=== PATIENT | female | born 1960 | race Caucasian/White ===

== ENCOUNTER → 2018-08-17 | Day surgery (SDC) | payer OTHER ==
[~2018-08-17] VITALS: Ht 165.1 cm; Wt 91.6 kg
[~2018-08-17] MED LIST: BREO ELLIPTA 21 EACH INH; FOSAMAX70 M1 PO; LASIX20 MG PO; LEVOTHYROXINE0.05 MG PO; MULTIPLE VITAMI1 CAP PO; OMEPRAZOLE MAGN20 MG PO; OXYGEN NAS; PERCOCET 325 MG1 TA5 PO; SPIRIVA18 MCG PO; SYMBICORT1 AE1 INH; VALIUM5 MG PO; ZOLOFT50 MG PO
--- NOTE | ~2018-08-17 | PROC NOTE ---
[place], [place] PROCEDURE NOTE NAME: FELICIA HUTCHINS UNIT #: [id number] ROOM: DOCTOR: CARLTON GONZALEZ MD,DEVONTE BIRTHDATE: 56 DOS: 08/17/2018 BRONCHOSCOPY PREOPERATIVE DIAGNOSIS: Severe nonproductive cough for several weeks. The patient is not responding to treatment. POSTOPERATIVE DIAGNOSES: Evidence of tracheobronchitis as well as mucus impaction of the endobronchial tree bilaterally, significant increased secretion, mucus impaction of the lower endobronchial tree, then the rest of the endobronchial tree. PROCEDURE DESCRIPTION: Informed consent obtained. The patient brought to the OR and placed in supine position. Conscious sedation administered by the Anesthesia Department. After achieving proper sedation, airway introduced in the mouth. Bronchoscope advanced to the airway into laryngeal area. Epiglottis and vocal cord seen. Vocal were moving symmetrically with movements. Bronchoscope advanced to vocal and tracheal lumen. Tracheal lumen was noted with small amount of mucus secretion and suctioned out. The right upper, right middle, right lower, left upper, lingular lower bronchi were all examined. Moderate amount of mucus plugs were noted mainly in the lower lobe bronchial subsegments, small scattered amount of secretion and mucus plug remaining in the endobronchial tree. There were no endobronchial obstructive lesions. Procedure well tolerated by the patient without difficulty. Postoperative findings were discussed. The patient's family member in recovery room. DEVONTE VINCENT MD CM:PROCNOTE:PROCEDURE NOTE [id number] DEVONTE GONZALEZ MD
[2018-08-17 07:45] VITALS: BP 120/96
[2018-08-17 08:55] VITALS: BP 102/68
[2018-08-17 09:10] VITALS: BP 130/76
[2018-08-17 09:25] VITALS: BP 125/75
[2018-08-18 15:07] LABS: ACID FAST SPEC PROCESSING Concentration (.)
== END | disposition home or self-care (01) ==
LOC: SDC 08-12 10:15
PROVIDERS: Internal Medicine Critical Care Medicine
DX: J40 Bronchitis, not specified as acute or chronic (principal); J98.09 Other diseases of bronchus, not elsewhere classified; J43.2 Centrilobular emphysema; E03.9 Hypothyroidism, unspecified; F41.9 Anxiety disorder, unspecified; K21.9 Gastro-esophageal reflux disease without esophagitis; F32.9 Major depressive disorder, single episode, unspecified; E66.01 Morbid (severe) obesity due to excess calories; Z68.33 Body mass index [BMI] 33.0-33.9, adult; Z88.5 Allergy status to narcotic agent; Z98.890 Other specified postprocedural states; Z87.891 Personal history of nicotine dependence; Z79.899 Other long term (current) drug therapy; Z90.710 Acquired absence of both cervix and uterus; Z88.1 Allergy status to other antibiotic agents; Z88.8 Allergy status to other drugs, medicaments and biological substances

== ENCOUNTER 2020-03-30 17:19 | Inpatient (IN) | payer OTHER ==
[~2020-03-30] VITALS: Ht 165.1 cm; Wt 86.0 kg
[2020-03-30 17:35] VITALS: BP 115/72
[2020-03-30 18:15] LABS: BASO % 0.1 % (0.0-1.0); EOS # 0.2 10*3/uL (0.0-0.4); EOS % 1.1 % (1.0-4.0); LYMPH # 2.9 10*3/uL (1.3-4.4); LYMPH % 21.6 % (27.0-41.0); MEAN CELL VOLUME 96.6 fl (81.0-99.0); MEAN PLATELET VOLUME 10.6 fl (9.6-12.3); MONO # 0.7 10*3/uL (0.1-1.0); MONO % 5.2 % (3.0-9.0); NEUT # 9.6 10*3/uL (2.3-7.9); NEUT % 71.7 % (47.0-73.0); PLATELET COUNT AUTOMATED 274 10*3/uL (130-400); RED BLOOD COUNT 4.35 10*6/uL (4.10-5.10); RED CELL DISTRI WIDTH 15.3 % (0-14.5); WHITE BLOOD COUNT 13.4 10*3/uL (4.8-10.8)
[2020-03-30 18:21] LABS: ABG BASE EXCESS 6.9 mmol/L (-2.0-2.0); ARTERIAL BLOOD GAS PH 7.368 (7.35-7.45)
[2020-03-30 18:25] LABS: ACT PARTIAL THROMBO TIME 26.9 SECONDS (20.0-32.1)
[2020-03-30 18:30] LABS: ALKALINE PHOSPHATASE 100 U/L (45-117); BUN 13 mg/dl (7-24); CHLORIDE 99 mmol/L (98-107); SGOT/AST 11 IU/L (3-35); SGPT/ALT 28 U/L (12-78); SODIUM 135 mmol/L (136-145); TOTAL PROTEIN 7.5 gm/dL (6.4-8.2)
[2020-03-30 18:34] LABS: TROPONIN I < 0.015 ng/ml (<0.045)
--- NOTE | 2020-03-30 19:00 | NUR ---
ASSUMED PT CARE, NURSE TO NURSE REPORT HANDOFF FROM CHRISTIN SAAVEDRA
[2020-03-30 19:26] VITALS: BP 118/80
--- NOTE | 2020-03-30 19:30 | NUR ---
CALLED 5TH FLOOR FOR PT TRANSPORT TO [facility]
--- NOTE | 2020-03-30 19:32 | NUR ---
IN WITH PT WILL TRANSPORT AFTER DR RIGGS
--- NOTE | 2020-03-30 19:36 | NUR ---
FAXED SBAR TO 5TH FLOOR
[2020-03-30 20:00] VITALS: BP 129/75
--- NOTE | 2020-03-30 20:00 | NUR ---
A 59, admitted to 5E, under the services of FADIA Reed DO with a diagnosis of COPD EXACERBATION. Chief complaint is SOB. Patient arrived via wheel chair from ER. Monitor applied. Initial assessment completed. Vital signs taken and recorded. FADIA REED DO notified of admission to the unit. Orders received. See assessment for past medical history, medications and allergies. Patient and/or family oriented to unit. [address] visitation policy reviewed. Clothing/patient valuable form completed. ELIZA SANDOVAL
--- NOTE | 2020-03-30 21:58 | NUR ---
PT MEDICATED WITH PRN ZOFRAN FOR C/O NAUSEA. WILL MONITOR FOR EFFECTIVENESS.
--- NOTE | 2020-03-30 22:45 | NUR ---
PT REPORTS RELIEF OF NAUSEA. PRN ZOFRAN EFFECTIVE.
[2020-03-31] VITALS (8 sets, daily range): BP systolic 99–112; BP diastolic 52–80
[2020-03-31 06:34] LABS: HEMATOCRIT 42.2 % (37.0-47.0); LYMPH # 1.2 10*3/uL (1.3-4.4); LYMPH % 16.4 % (27.0-41.0); MEAN CORPUSCULAR HGB 28.7 pg (27.0-31.0); MEAN CORPUSCULAR HGB CONC 29.6 g/dl (33.0-37.0); MEAN PLATELET VOLUME 10.7 fl (9.6-12.3); MONO # 0.1 10*3/uL (0.1-1.0); MONO % 0.7 % (3.0-9.0); NEUT % 82.6 % (47.0-73.0); PLATELET COUNT AUTOMATED 266 10*3/uL (130-400); RED BLOOD COUNT 4.35 10*6/uL (4.10-5.10); RED CELL DISTRI WIDTH 14.9 % (0-14.5); WHITE BLOOD COUNT 7.2 10*3/uL (4.8-10.8)
[2020-03-31 06:48] LABS: CLARITY CLEAR (CLEAR); COLOR YELLOW (YELLOW); GLUCOSE NEGATIVE (NEGATIVE)
[2020-03-31 06:49] LABS: BILIRUBIN NEGATIVE (NEGATIVE); BLOOD 1+ (NEGATIVE); KETONE NEGATIVE (NEGATIVE); PH 6.5 (5.0-9.0)
[2020-03-31 06:50] LABS: LEUKO ESTERASE NEGATIVE (NEGATIVE); MUCOUS TRACE; NITRITE NEGATIVE (NEGATIVE); UROBILINOGEN 0.2 E.U./dl (0.2-1.0); WBC 0-2 wbc/hpf (0-5)
--- NOTE | 2020-03-31 07:00 | NUR ---
ARRIVED ON SHIFT, REPORT RECEIVED FROM OFF GOING NURSE, ASSUMED CARE OF PATIENT.
[2020-03-31 07:01] LABS: ALBUMIN 2.8 gm/dl (3.1-4.5); BUN 15 mg/dl (7-24); CHLORIDE 99 mmol/L (98-107); CHOLESTEROL 140 mg/dL (<200); CREATININE 0.51 mg/dL (0.55-1.02); POTASSIUM 4.7 mmol/L (3.5-5.1); SGOT/AST 10 IU/L (3-35); SGPT/ALT 25 U/L (12-78); SODIUM 135 mmol/L (136-145)
[2020-03-31 07:08] LABS: ALKALINE PHOSPHATASE 99 U/L (45-117); FREE T4 1.53 ng/dl (0.76-1.46); HDL CHOLESTEROL 50 mg/dl (40-60); LDL CHOLESTEROL 78 mg/dL (9-159); THYROID STIM HORMONE (HS) 0.142 uIU/ml (0.358-4.75); TOTAL PROTEIN 7.6 gm/dL (6.4-8.2); TRIGLYCERIDES 60 mg/dl (<150); VLDL CHOLESTEROL 12 mg/dL (6-40)
--- NOTE | 2020-03-31 07:22 | NUR ---
INTRODUCED SELF TO PATIENT BED IN LOW POSITION, WHEEL LOCKS ENGAGED, SIDERAILS UP X 2 FOR TURNING AND REPOSITIONING, CALL LIGHT WITHIN REACH NO NEEDS VOICED AT THIS TIME
--- NOTE | 2020-03-31 07:23 | NUR ---
Shift chart check completed.
[2020-03-31 11:00] LABS: VITAMIN D, 25-HYDROXY 19.8 ng/mL (30-100)
--- NOTE | 2020-03-31 12:46 | NUR ---
Manager Clinical [employer] in to talk to patient. Patient states lives at HOME with BOYFRIEND AND HER SON. There are 15 steps in the home. Physician: IZAIAH GUTIERREZ Pharmacy: [facility] Home health services: NONE Patient's level of ADLs: INDEPENDENT Patient has working utilities: YES DME: OXYGEN THROUGH [employer], [employer]UL[employer] Follow-up physician's appointment after d/c: WILL BE MADE BY HOSPITALIST NURSE DIRECTOR ON DISCHARGE Does patient want to access PORTAL?: NO Discharge plan PT LIVES AT HOME WITH HER BOYFRIEND AND HER SON AND IS INDEPENDENT IN HER CARE. STATES SHE HAS HOME OXYGEN AND NEBULIZER AT HOME. DENIES ANY OTHER NEEDS. ASKED HER ABOUT HOME HEALTH BUT SHE DECLINES. PLAN IS TO RETURN HOME WHEN MEDICALLY STABLE. WILL CONTINUE TO FOLLOW. WILL HAVE A RIDE HOME PER PT.. RAVEN VELEZ
--- NOTE | 2020-03-31 20:08 | NUR ---
ZOFRAN GIVEN PER PT. REQUEST BECAUSE ZITHROMAX MADE HER NAUSEAOUS YESTERDAY.
--- NOTE | 2020-03-31 21:00 | NUR ---
ZOFRAN EFFECTIVE FOR NAUSEA PER PT.
[2020-04-01] VITALS: BP 102/67
--- NOTE | 2020-04-01 05:03 | NUR ---
24 HR chart check completed.
[2020-04-01 06:28] LABS: LYMPH # 1.3 10*3/uL (1.3-4.4); LYMPH % 14.1 % (27.0-41.0); MEAN CELL VOLUME 97.7 fl (81.0-99.0); MEAN CORPUSCULAR HGB 28.8 pg (27.0-31.0); MEAN CORPUSCULAR HGB CONC 29.5 g/dl (33.0-37.0); MEAN PLATELET VOLUME 10.7 fl (9.6-12.3); MONO # 0.2 10*3/uL (0.1-1.0); MONO % 1.9 % (3.0-9.0); NEUT # 7.5 10*3/uL (2.3-7.9); NEUT % 83.7 % (47.0-73.0); PLATELET COUNT AUTOMATED 271 10*3/uL (130-400); RED BLOOD COUNT 3.99 10*6/uL (4.10-5.10); RED CELL DISTRI WIDTH 14.8 % (0-14.5)
[2020-04-01 06:37] LABS: BUN 12 mg/dl (7-24); CHLORIDE 98 mmol/L (98-107); CREATININE 0.47 mg/dL (0.55-1.02); POTASSIUM 4.8 mmol/L (3.5-5.1); SODIUM 137 mmol/L (136-145)
[2020-04-01] MEDS ORDERED: AVPAK AZITHROM250 M1 PO (11:42)
[2020-04-01] MEDS ORDERED: PREDNISONE10 MG PO (11:42)
[2020-04-01 12:00] VITALS: BP 104/74
[2020-04-01 14:08] LABS: ACID FAST SPEC PROCESSING Concentration (.)
--- NOTE | 2020-04-01 15:31 | NUR ---
Discharge instructions reviewed with patient/family. Patient receptive and verbalizes understanding. Follow-up care arranged. Written instructions given to patient/family. PRICILA DAVISON
== END 2020-04-01 15:31 | disposition home or self-care (01) | DRG 720 ==
LOC: ED 17:19 → EDHOLD 18:30 → 5E 18:30
PROVIDERS: Emergency Medicine; Internal Medicine; Internal Medicine Critical Care Medicine; ADMIT Student in an Organized Health Care Education/Training Program
PROC: 0BC98ZZ Extirpation of Matter from Lingula Bronchus, Via Natural or Artificial Opening Endoscopic (ICD-10-PCS; principal; 2020-03-31)
PROC: 0BC48ZZ Extirpation of Matter from Right Upper Lobe Bronchus, Via Natural or Artificial Opening Endoscopic (ICD-10-PCS; 2020-03-31)
PROC: 0BC88ZZ Extirpation of Matter from Left Upper Lobe Bronchus, Via Natural or Artificial Opening Endoscopic (ICD-10-PCS; 2020-03-31)
PROC: 0BC58ZZ Extirpation of Matter from Right Middle Lobe Bronchus, Via Natural or Artificial Opening Endoscopic (ICD-10-PCS; 2020-03-31)
PROC: 0BC38ZZ Extirpation of Matter from Right Main Bronchus, Via Natural or Artificial Opening Endoscopic (ICD-10-PCS; 2020-03-31)
PROC: 0BC78ZZ Extirpation of Matter from Left Main Bronchus, Via Natural or Artificial Opening Endoscopic (ICD-10-PCS; 2020-03-31)
PROC: 0BC68ZZ Extirpation of Matter from Right Lower Lobe Bronchus, Via Natural or Artificial Opening Endoscopic (ICD-10-PCS; 2020-03-31)
PROC: 0BCB8ZZ Extirpation of Matter from Left Lower Lobe Bronchus, Via Natural or Artificial Opening Endoscopic (ICD-10-PCS; 2020-03-31)
PROC: 0BC18ZZ Extirpation of Matter from Trachea, Via Natural or Artificial Opening Endoscopic (ICD-10-PCS; 2020-03-31)
DX: A41.9 Sepsis, unspecified organism (principal); R65.20 Severe sepsis without septic shock; E03.9 Hypothyroidism, unspecified; J96.21 Acute and chronic respiratory failure with hypoxia; J96.22 Acute and chronic respiratory failure with hypercapnia; J69.0 Pneumonitis due to inhalation of food and vomit; M81.0 Age-related osteoporosis without current pathological fracture; R73.9 Hyperglycemia, unspecified; J44.1 Chronic obstructive pulmonary disease with (acute) exacerbation; E87.1 Hypo-osmolality and hyponatremia; F17.210 Nicotine dependence, cigarettes, uncomplicated; F41.1 Generalized anxiety disorder; E87.3 Alkalosis; E66.01 Morbid (severe) obesity due to excess calories; Z99.81 Dependence on supplemental oxygen; Z82.49 Family history of ischemic heart disease and other diseases of the circulatory system; Z83.6 Family history of other diseases of the respiratory system; Z83.3 Family history of diabetes mellitus; Z79.899 Other long term (current) drug therapy; Z71.6 Tobacco abuse counseling; Z68.31 Body mass index [BMI] 31.0-31.9, adult; Z88.8 Allergy status to other drugs, medicaments and biological substances

== ENCOUNTER → 2022-01-28 | Day surgery (SDC) | payer OTHER ==
[~2022-01-28] VITALS: Ht 165.1 cm; Wt 84.8 kg
[~2022-01-28] MED LIST changes: +AVPAK AZITHROM250 M1 PO; -LEVOTHYROXINE0.05 MG PO; +OXYBUTYNIN ER15 MG PO; +PREDNISONE10 MG PO; +SYNTHROID137 MCG PO; +VENT7GM INH
[2022-01-28 09:11] VITALS: BP 131/86
[2022-01-28 10:31] VITALS: BP 108/66
[2022-01-28 10:46] VITALS: BP 105/75
[2022-01-28 10:58] VITALS: BP 110/68
[2022-01-28 11:21] LABS: ACT PARTIAL THROMBO TIME 29.5 SECONDS (20.0-32.1); INTERNATIONAL NORM RATIO 0.9 (2.0-3.5)
[2022-01-29 12:07] LABS: ACID FAST SPEC PROCESSING Concentration (.)
== END | disposition home or self-care (01) ==
LOC: SDC 01-25 09:30
PROVIDERS: ATTEND Internal Medicine Critical Care Medicine
DX: R05.9 Cough, unspecified (principal); J44.9 Chronic obstructive pulmonary disease, unspecified; F41.9 Anxiety disorder, unspecified; F32.9 Major depressive disorder, single episode, unspecified; E03.9 Hypothyroidism, unspecified; M81.0 Age-related osteoporosis without current pathological fracture; Z88.8 Allergy status to other drugs, medicaments and biological substances; Z79.01 Long term (current) use of anticoagulants; Z79.899 Other long term (current) drug therapy

== ENCOUNTER → 2023-06-23 | Day surgery (SDC) | payer OTHER ==
[~2023-06-23] VITALS: Ht 165.1 cm; Wt 67.6 kg
[~2023-06-23] MED LIST changes: +DOXYCYCLINE MO100 MG PO; +VITAMIN D-40010 MCG PO
[2023-06-23 08:00] VITALS: BP 120/75
[2023-06-23 09:28] VITALS: BP 80/52
[2023-06-23 09:43] VITALS: BP 95/70
[2023-06-23 09:57] VITALS: BP 107/66
[2023-06-24 18:06] LABS: ACID FAST SPEC PROCESSING Concentration (.)
== END ==
LOC: SDC 06-16 11:00
PROVIDERS: ATTEND Internal Medicine Critical Care Medicine
DX: R05.9 Cough, unspecified (principal); R06.2 Wheezing; R06.00 Dyspnea, unspecified; E03.9 Hypothyroidism, unspecified; F41.9 Anxiety disorder, unspecified; F32.A Depression, unspecified; F17.210 Nicotine dependence, cigarettes, uncomplicated; Z79.899 Other long term (current) drug therapy; Z90.710 Acquired absence of both cervix and uterus; Z98.890 Other specified postprocedural states